=== PATIENT | male | born 1980 | race Caucasian/White ===

== ENCOUNTER 2024-09-26 14:50 | Inpatient (IN) | payer MEDICARE, MEDICAID ==
[2024-09-26] MEDS: Ondansetron 4 MG/2 ML SDV IVPUSH ONE (15:32)
[2024-09-26] MEDS: Sodium Chloride 0.9% 1,000 ML IV STA (15:32)
[2024-09-26] MEDS: Morphine 2 MG/ML SYRINGE IVPUSH ONE (15:33)
[2024-09-26] MEDS: Sodium Chloride 0.9% 10 ML Syringe FLUSH PRN (15:34)
[2024-09-26 15:39] LABS: BASOPHILS PERCENT AUTO 0.2 % (0.0-1.0); EOSINOPHILS ABSOLUTE AUTO 0.2 K/mm3 (0.0-0.4); EOSINOPHILS PERCENT AUTO 1.4 % (0.0-6.0); HEMATOCRIT 36.5 % (42.0-52.0); HEMOGLOBIN 13.1 gm/dl (14.0-18.0); IMMATURE GRAN ABSOLUTE AUTO 0.04 K/mm3 (0.00-0.05); IMMATURE GRAN PERCENT AUTO 0.3 % (0.0-0.4); LYMPHOCYTES ABSOLUTE AUTO 1.1 K/mm3 (1.0-4.8); LYMPHOCYTES PERCENT AUTO 8.7 % (24.0-44.0); MEAN CORPUSCULAR HEMOGLOBIN 33.6 pg (28.0-32.0); MEAN CORPUSCULAR HGB CONC 35.9 g/dl (32.0-36.0); MEAN CORPUSCULAR VOLUME 93.6 fl (83.0-99.0); MEAN PLATELET VOLUME 9.5 fl (9.4-12.4); MONOCYTES ABSOLUTE AUTO 0.9 K/mm3 (0.0-0.8); MONOCYTES PERCENT AUTO 6.7 % (0.0-8.0); NEUTROPHILS ABSOLUTE AUTO 10.8 K/mm3 (1.8-7.7); NEUTROPHILS PERCENT AUTO 82.7 % (41.0-71.0); PLATELET COUNT,PLT 431 K/mm3 (150-400); WHITE BLOOD CELL COUNT,WBC 13.01 K/mm3 (3.9-11.3)
[2024-09-26 16:04] LABS: A/G RATIO 0.7 (1-2); ALANINE AMINOTRANSFERASE,ALT 29 U/L (16-63); ALBUMIN 2.4 g/dl (3.4-5.0); ALKALINE PHOSPHATASE 146 U/L (46-116); ANION GAP 11.2 (5-15); ASPARTATE AMNIOTRANSFERASE,AST 19 U/L (15-37); BILIRUBIN TOTAL 0.3 mg/dL (0.2-1.0); BLOOD UREA NITROGEN,BUN 7 mg/dL (7-18); C-REACTIVE PROTEIN 1.64 mg/dL (<0.30); CALCIUM 8.3 mg/dL (8.5-10.1); CARBON DIOXIDE,CO2 27 mEq/L (21-32); CHLORIDE,CL 103 mEq/L (98-107); ESTIMATED GFR 96 mL/min (>60); GLUCOSE RANDOM 85 mg/dL (70-99); LIPASE 64 U/L (16-77); MAGNESIUM 1.5 mg/dL (1.8-2.4); PROTEIN TOTAL,TP 5.7 g/dl (6.4-8.2); SODIUM,NA 139 mEq/L (136-145)
[2024-09-26 16:09] LABS: POTASSIUM,K 2.2 mEq/L (3.5-5.1)
[2024-09-26] MEDS: droPERidol 2.5 MG/ML SDV IVPUSH ONE (16:15)
[2024-09-26] MEDS: Potassium Chloride 10 MEQ in Premix Bag 1 BAG IV SCH (16:18)
[2024-09-26] MEDS: Magnesium Sulf/Wat 4 GM/50 mL 4 GM in Premix Bag 1 BAG IV ONE (16:33)
[2024-09-26] MEDS: HYDROmorphone 0.5 MG/0.5 ML Syringe IVPUSH ONE (17:15)
[2024-09-26 17:24] LABS: APPEARANCE,URINE CLEAR (Clear); BILIRUBIN,URINE NEGATIVE (Negative); COLOR,URINE YELLOW (Yellow); GLUCOSE,URINE NEGATIVE (Negative); KETONES,URINE NEGATIVE (Negative); LEUKOCYTE ESTERASE,URINE NEGATIVE (Negative); NITRITE,URINE NEGATIVE (Negative); OCCULT BLOOD,URINE TRACE-INTACT (Negative); PH,URINE 6.5 (5.0-8.0); PROTEIN,URINE NEGATIVE (Negative); UROBILINOGEN,URINE 0.2 (0.2-1.0)
[2024-09-26 17:45] LABS: RBC,URINE 0-5 /hpf (0-5); WBC,URINE 0-5 /hpf (0-5)
[2024-09-26 17:46] LABS: BACTERIA,URINE FEW /hpf (FEW); EPITHELIAL CELLS,URINE 0-5 /hpf (0-5); MUCUS,URINE FEW /hpf (FEW)
[2024-09-26] MEDS ORDERED: Acetaminophen 325 MG Tab PO PRN ×2 (17:50→18:25)
[2024-09-26] MEDS ORDERED: Morphine 2 MG/ML SYRINGE SUBCUT PRN (18:24)
[2024-09-26] MEDS ORDERED: Naloxone 0.4 MG/ML SDV IVPUSH PRN (18:24)
[2024-09-26] MEDS: Potassium Chloride 20 MEQ Tab.ER PO ONE (18:30)
[2024-09-26] MEDS: oxyCODONE 5 MG Tab PO PRN (18:36)
[2024-09-26] MEDS: Sodium Chloride 0.9% 1,000 ML IV SCH (20:46)
[2024-09-26] MEDS: Morphine 2 MG/ML SYRINGE IVPUSH PRN (20:50)
[2024-09-26] MEDS: metroNIDAZOLE/Normal Saline 500 MG in Premix Bag 1 BAG IV SCH (23:06)
[2024-09-26] MEDS: methylPREDNISolone Sodium Succinate 40 MG/1 ML SDV IVPUSH SCH (23:07)
[2024-09-27 05:40] LABS: BASOPHILS PERCENT AUTO 0.1 % (0.0-1.0); EOSINOPHILS PERCENT AUTO 0.2 % (0.0-6.0); HEMATOCRIT 33.7 % (42.0-52.0); HEMOGLOBIN 11.7 gm/dl (14.0-18.0); IMMATURE GRAN ABSOLUTE AUTO 0.04 K/mm3 (0.00-0.05); IMMATURE GRAN PERCENT AUTO 0.5 % (0.0-0.4); LYMPHOCYTES ABSOLUTE AUTO 0.3 K/mm3 (1.0-4.8); LYMPHOCYTES PERCENT AUTO 3.9 % (24.0-44.0); MEAN CORPUSCULAR HEMOGLOBIN 33.1 pg (28.0-32.0); MEAN CORPUSCULAR HGB CONC 34.7 g/dl (32.0-36.0); MEAN CORPUSCULAR VOLUME 95.5 fl (83.0-99.0); MEAN PLATELET VOLUME 9.5 fl (9.4-12.4); MONOCYTES ABSOLUTE AUTO 0.1 K/mm3 (0.0-0.8); MONOCYTES PERCENT AUTO 0.9 % (0.0-8.0); NEUTROPHILS ABSOLUTE AUTO 7.7 K/mm3 (1.8-7.7); NEUTROPHILS PERCENT AUTO 94.4 % (41.0-71.0); PLATELET COUNT,PLT 378 K/mm3 (150-400); RED BLOOD CELL COUNT 3.53 M/mm3 (4.52-5.90); WHITE BLOOD CELL COUNT,WBC 8.12 K/mm3 (3.9-11.3)
[2024-09-27 06:05] LABS: A/G RATIO 0.7 (1-2); ANION GAP 11.8 (5-15); BILIRUBIN TOTAL 0.3 mg/dL (0.2-1.0); BUN/CREATININE RATIO 4.4 (14-18); CALCIUM 7.8 mg/dL (8.5-10.1); CREATININE 0.9 mg/dL (0.7-1.3); EST CRCL DRUG DOSING (CG) 77.13 mL/min; MAGNESIUM 2.2 mg/dL (1.8-2.4); POTASSIUM,K 3.8 mEq/L (3.5-5.1); PROTEIN TOTAL,TP 4.8 g/dl (6.4-8.2)
[2024-09-27 06:11] LABS: SLIDE REVIEW ABNORMAL SMEAR
[2024-09-27] MEDS: Sodium Chloride 0.9% 1,000 ML IV ONE (07:48)
[2024-09-27] MEDS: Enoxaparin 40 MG/0.4 ML Syringe SUBCUT SCH (08:11)
[2024-09-27] MEDS: Potassium Chloride 20 MEQ Tab.ER PO ONE (08:53)
== END 2024-09-27 13:00 | disposition home or self-care (01) | DRG 386 ==
LOC: JD.ED 14:50 → JD.MS 17:51
PROVIDERS: ADMIT Family Medicine; ATTEND Student in an Organized Health Care Education/Training Program
DX: K50.919 Crohn's disease, unspecified, with unspecified complications (principal); Z68.1 Body mass index [BMI] 19.9 or less, adult; J44.9 Chronic obstructive pulmonary disease, unspecified; K52.9 Noninfective gastroenteritis and colitis, unspecified; F17.210 Nicotine dependence, cigarettes, uncomplicated; F12.90 Cannabis use, unspecified, uncomplicated; E86.0 Dehydration; E87.5 Hyperkalemia; E83.42 Hypomagnesemia; R63.4 Abnormal weight loss; E87.6 Hypokalemia; I95.9 Hypotension, unspecified; Z79.899 Other long term (current) drug therapy
CPT/HCPCS: 36415; 80053; 81001; 83690; 83735; 85025; 86140; 87045; 87046 ×3; 87493 ×2; 87899 ×2; 93005; 96361; 96365; 96375; 99285; J1790; J2270; J2405; J3475; J3480 ×2; J7030; A9270-GY; J1836; J2919

== ENCOUNTER 2024-10-06 13:05 | Inpatient (IN) | payer MEDICAID, MEDICARE ==
[2024-10-06] MEDS ORDERED: Sodium Chloride 0.9% 10 ML Syringe FLUSH PRN (13:13)
[2024-10-06 13:42] LABS: BASOPHILS PERCENT AUTO 0.1 % (0.0-1.0); EOSINOPHILS ABSOLUTE AUTO 0.1 K/mm3 (0.0-0.4); EOSINOPHILS PERCENT AUTO 0.5 % (0.0-6.0); HEMATOCRIT 36.7 % (42.0-52.0); HEMOGLOBIN 13.4 gm/dl (14.0-18.0); IMMATURE GRAN ABSOLUTE AUTO 0.14 K/mm3 (0.00-0.05); IMMATURE GRAN PERCENT AUTO 0.7 % (0.0-0.4); LYMPHOCYTES ABSOLUTE AUTO 0.3 K/mm3 (1.0-4.8); LYMPHOCYTES PERCENT AUTO 1.5 % (24.0-44.0); MEAN CORPUSCULAR HEMOGLOBIN 33.9 pg (28.0-32.0); MEAN CORPUSCULAR HGB CONC 36.5 g/dl (32.0-36.0); MEAN CORPUSCULAR VOLUME 92.9 fl (83.0-99.0); MEAN PLATELET VOLUME 9.8 fl (9.4-12.4); MONOCYTES ABSOLUTE AUTO 0.5 K/mm3 (0.0-0.8); MONOCYTES PERCENT AUTO 2.4 % (0.0-8.0); NEUTROPHILS ABSOLUTE AUTO 19.4 K/mm3 (1.8-7.7); NEUTROPHILS PERCENT AUTO 94.8 % (41.0-71.0); PLATELET COUNT,PLT 385 K/mm3 (150-400); RED BLOOD CELL COUNT 3.95 M/mm3 (4.52-5.90); WHITE BLOOD CELL COUNT,WBC 20.52 K/mm3 (3.9-11.3)
[2024-10-06] MEDS: Potassium Chloride 20 MEQ Tab.ER PO ONE (13:54)
[2024-10-06] MEDS: Ondansetron 4 MG/2 ML SDV IVPUSH ONE (13:55)
[2024-10-06] MEDS: Sodium Chloride 0.9% 1,000 ML IV STA (13:55)
[2024-10-06] MEDS: Potassium Chloride 10 MEQ in Premix Bag 1 BAG IV SCH ×4 (13:55→20:50)
[2024-10-06] MEDS: Morphine 2 MG/ML SYRINGE IVPUSH ONE (13:55)
[2024-10-06 14:06] LABS: A/G RATIO 0.9 (1-2); ALBUMIN 2.6 g/dl (3.4-5.0); ANION GAP 11.7 (5-15); BILIRUBIN TOTAL 0.5 mg/dL (0.2-1.0); BUN/CREATININE RATIO 6.7 (14-18); CALCIUM 7.5 mg/dL (8.5-10.1); CREATININE 1.2 mg/dL (0.7-1.3); EST CRCL DRUG DOSING (CG) 59.5 mL/min; MAGNESIUM 1.6 mg/dL (1.8-2.4); PROTEIN TOTAL,TP 5.4 g/dl (6.4-8.2)
[2024-10-06 14:09] LABS: POTASSIUM,K 1.7 mEq/L (3.5-5.1)
[2024-10-06] MEDS: Magnesium Sulf/Wat 4 GM/50 mL 4 GM in Premix Bag 1 BAG IV ONE (14:21)
[2024-10-06] MEDS: methylPREDNISolone Sodium Succinate 40 MG/1 ML SDV IVPUSH ONE (14:35)
[2024-10-06] MEDS ORDERED: Acetaminophen 325 MG Tab PO PRN (15:37)
[2024-10-06] MEDS ORDERED: Ondansetron 4 MG/2 ML SDV IV PRN (15:37)
[2024-10-06 16:24] LABS: CREATINE KINASE,CK 52 U/L (39-308); TROPONIN I HIGH SENSITIVITY 8 pg/mL (<=76)
[2024-10-06] MEDS: Potassium Chloride 20 MEQ Tab.ER PO SCH (17:18)
[2024-10-06] MEDS ORDERED: Morphine 2 MG/ML SYRINGE SUBCUT PRN (17:22)
[2024-10-06] MEDS ORDERED: Naloxone 0.4 MG/ML SDV IVPUSH PRN (17:22)
[2024-10-06] MEDS: oxyCODONE 5 MG Tab PO PRN (17:24)
[2024-10-06] MEDS: Morphine 2 MG/ML SYRINGE IV PRN (18:24)
[2024-10-06] MEDS ORDERED: Sodium Chloride 0.9% 500 ML IV SCH (20:00)
[2024-10-06] MEDS: Morphine 2 MG/ML SYRINGE IVPUSH PRN (21:40)
[2024-10-06] MEDS: methylPREDNISolone Sodium Succinate 40 MG/1 ML SDV IVPUSH SCH (21:41)
[2024-10-06] MEDS: Sodium Chloride 0.9% 1,000 ML IV SCH (22:42)
[2024-10-07 04:54] LABS: BASOPHILS PERCENT AUTO 0.1 % (0.0-1.0); EOSINOPHILS PERCENT AUTO 0.1 % (0.0-6.0); HEMATOCRIT 31.9 % (42.0-52.0); HEMOGLOBIN 11.2 gm/dl (14.0-18.0); IMMATURE GRAN ABSOLUTE AUTO 0.13 K/mm3 (0.00-0.05); IMMATURE GRAN PERCENT AUTO 0.9 % (0.0-0.4); LYMPHOCYTES ABSOLUTE AUTO 0.4 K/mm3 (1.0-4.8); LYMPHOCYTES PERCENT AUTO 2.8 % (24.0-44.0); MEAN CORPUSCULAR HEMOGLOBIN 33.4 pg (28.0-32.0); MEAN CORPUSCULAR HGB CONC 35.1 g/dl (32.0-36.0); MEAN CORPUSCULAR VOLUME 95.2 fl (83.0-99.0); MEAN PLATELET VOLUME 9.9 fl (9.4-12.4); MONOCYTES ABSOLUTE AUTO 0.4 K/mm3 (0.0-0.8); MONOCYTES PERCENT AUTO 2.6 % (0.0-8.0); NEUTROPHILS ABSOLUTE AUTO 13.5 K/mm3 (1.8-7.7); NEUTROPHILS PERCENT AUTO 93.5 % (41.0-71.0); PLATELET COUNT,PLT 274 K/mm3 (150-400); RED BLOOD CELL COUNT 3.35 M/mm3 (4.52-5.90); WHITE BLOOD CELL COUNT,WBC 14.42 K/mm3 (3.9-11.3)
[2024-10-07 05:27] LABS: A/G RATIO 0.8 (1-2); ALBUMIN 1.9 g/dl (3.4-5.0); ANION GAP 10.8 (5-15); BILIRUBIN TOTAL 0.5 mg/dL (0.2-1.0); BUN/CREATININE RATIO 8.8 (14-18); CALCIUM 6.3 mg/dL (8.5-10.1); CREATININE 0.8 mg/dL (0.7-1.3); EST CRCL DRUG DOSING (CG) 96.09 mL/min; MAGNESIUM 2.2 mg/dL (1.8-2.4); POTASSIUM,K 3.8 mEq/L (3.5-5.1); PROTEIN TOTAL,TP 4.2 g/dl (6.4-8.2)
[2024-10-07 06:35] LABS: SLIDE REVIEW ABNORMAL SMEAR
[2024-10-07 08:12] LABS: PHOSPHORUS 3.1 mg/dL (2.6-4.7); VITAMIN D,25-HYDROXY < 5.0 ng/ml (30.0-100.0)
[2024-10-07] MEDS: Cholecalciferol (Vitamin D3) 5,000 UNIT Cap PO ONE (10:13)
[2024-10-09 19:42] LABS: IONIZED CA@PH7.4 1.06 mmol/L (1.09-1.30); IONIZED CALCIUM 1.02 mmol/L (1.09-1.30)
== END 2024-10-07 10:20 | disposition home or self-care (01) | DRG 641 ==
LOC: JD.ED 13:05 → JD.ICU 15:53
PROVIDERS: ADMIT Family Medicine; ATTEND Family Medicine
DX: E87.5 Hyperkalemia (principal); K50.90 Crohn's disease, unspecified, without complications; E83.42 Hypomagnesemia; E86.0 Dehydration; R63.8 Other symptoms and signs concerning food and fluid intake; D72.829 Elevated white blood cell count, unspecified; F10.90 Alcohol use, unspecified, uncomplicated; Y90.0 Blood alcohol level of less than 20 mg/100 ml; F12.90 Cannabis use, unspecified, uncomplicated; E87.6 Hypokalemia; Z88.8 Allergy status to other drugs, medicaments and biological substances; Z79.51 Long term (current) use of inhaled steroids; Z79.899 Other long term (current) drug therapy; Z98.890 Other specified postprocedural states
CPT/HCPCS: 36415; 80053; 80307; 82306; 82330; 82550; 83735; 84100; 84132; 84484; 85025; 85652; 86140; 93005; 96365; 96367; 96368; 96375; 99285; 99285-25; A9270-GY; J2270; J2405; J2919; J3475; J3480; J7030

== ENCOUNTER 2024-10-15 15:24 | Inpatient (IN) | payer MEDICARE, MEDICAID ==
[2024-10-15] MEDS: oxyCODONE 5 MG Tab PO ONE ×2 (16:39→23:51)
[2024-10-15 16:49] LABS: BASOPHILS PERCENT AUTO 0.1 % (0.0-1.0); EOSINOPHILS ABSOLUTE AUTO 0.1 K/mm3 (0.0-0.4); EOSINOPHILS PERCENT AUTO 0.4 % (0.0-6.0); HEMATOCRIT 37.4 % (42.0-52.0); HEMOGLOBIN 12.9 gm/dl (14.0-18.0); IMMATURE GRAN ABSOLUTE AUTO 0.07 K/mm3 (0.00-0.05); IMMATURE GRAN PERCENT AUTO 0.5 % (0.0-0.4); LYMPHOCYTES ABSOLUTE AUTO 1.3 K/mm3 (1.0-4.8); LYMPHOCYTES PERCENT AUTO 10.1 % (24.0-44.0); MEAN CORPUSCULAR HEMOGLOBIN 34.4 pg (28.0-32.0); MEAN CORPUSCULAR HGB CONC 34.5 g/dl (32.0-36.0); MEAN CORPUSCULAR VOLUME 99.7 fl (83.0-99.0); MEAN PLATELET VOLUME 9.6 fl (9.4-12.4); MONOCYTES PERCENT AUTO 7.5 % (0.0-8.0); NEUTROPHILS ABSOLUTE AUTO 10.4 K/mm3 (1.8-7.7); NEUTROPHILS PERCENT AUTO 81.4 % (41.0-71.0); PLATELET COUNT,PLT 223 K/mm3 (150-400); RED BLOOD CELL COUNT 3.75 M/mm3 (4.52-5.90); WHITE BLOOD CELL COUNT,WBC 12.73 K/mm3 (3.9-11.3)
[2024-10-15 17:09] LABS: ALBUMIN 2.5 g/dl (3.4-5.0); ANION GAP 7.7 (5-15); BILIRUBIN TOTAL 0.4 mg/dL (0.2-1.0); C-REACTIVE PROTEIN 0.89 mg/dL (<0.30); CALCIUM 6.6 mg/dL (8.5-10.1); EST CRCL DRUG DOSING (CG) 78.27 mL/min; ETHANOL BLOOD MEDICAL 0.04 gm% (0.00); MAGNESIUM 1.1 mg/dL (1.8-2.4); PROTEIN TOTAL,TP 5.1 g/dl (6.4-8.2)
[2024-10-15 17:21] LABS: POTASSIUM,K 1.7 mEq/L (3.5-5.1)
[2024-10-15] MEDS: Sodium Chloride 0.9% 1,000 ML IV SCH (17:28)
[2024-10-15] MEDS: Potassium Chloride 10 MEQ in Premix Bag 1 BAG IV SCH ×3 (17:29→21:45)
[2024-10-15] MEDS ORDERED: Magnesium Sulf/Wat 2 GM/50 mL 2 GM/50 ML BAG IV SCH (17:45)
[2024-10-15] MEDS: Magnesium Oxide 400 MG Tab PO ONE (18:08)
[2024-10-15] MEDS: Magnesium Sulf/Wat 2 GM/50 mL 2 GM/50 ML BAG IV ONE ×2 (18:08→19:57)
[2024-10-15] MEDS: Potassium Chloride 20 MEQ Tab.ER PO ONE ×2 (18:08→19:44)
[2024-10-15] MEDS: Spironolactone 25 MG Tab PO ONE (18:32)
[2024-10-15] MEDS: predniSONE 20 MG Tab PO ONE (18:40)
[2024-10-15] MEDS: Loperamide 2 MG Cap PO STA (18:53)
[2024-10-15 18:55] LABS: APPEARANCE,URINE CLEAR (Clear); BILIRUBIN,URINE NEGATIVE (Negative); COLOR,URINE YELLOW (Yellow); GLUCOSE,URINE NEGATIVE (Negative); KETONES,URINE NEGATIVE (Negative); LEUKOCYTE ESTERASE,URINE NEGATIVE (Negative); NITRITE,URINE NEGATIVE (Negative); OCCULT BLOOD,URINE NEGATIVE (Negative); PH,URINE 6.5 (5.0-8.0); PROTEIN,URINE NEGATIVE (Negative); UROBILINOGEN,URINE 0.2 (0.2-1.0)
[2024-10-15 19:40] LABS: BARBITURATE SCREEN,URINE NEGATIVE (CUTOFF=200); BENZODIAZEPINES SCREEN,URINE NEGATIVE (CUTOFF=150); BUPRENORPHINE SCREEN,URINE NEGATIVE (CUTOFF=10); METHADONE SCREEN, URINE NEGATIVE (CUT0FF=200); METHAMPHETAMINES SCREEN, URINE NEGATIVE (CUTOFF=500); OXYCODONE SCREEN,URINE NEGATIVE (CUT0FF=100); THC SCREEN,URINE 20 NG/ML PRESUMPTIVE POSITIVE (CUTOFF=50)
[2024-10-15 19:41] LABS: AMPHETAMINES SCREEN, URINE NEGATIVE (CUTOFF=500)
[2024-10-15] MEDS: oxyCODONE 5 MG Tab PO SCH (20:38)
[2024-10-16] MEDS: Loperamide 2 MG Cap PO PRN ×2 (00:02→17:19)
[2024-10-16 01:20] LABS: ANION GAP 3.9 (5-15); BUN/CREATININE RATIO 8.9 (14-18); CALCIUM 6.1 mg/dL (8.5-10.1); CREATININE 0.9 mg/dL (0.7-1.3); EST CRCL DRUG DOSING (CG) 86.97 mL/min
[2024-10-16] MEDS: Sodium Chloride 0.9% 100 ML IV SCH (01:30)
[2024-10-16] MEDS: Sodium Chloride 0.9% 100 ML ONE (01:30)
[2024-10-16 01:46] LABS: POTASSIUM,K 3.9 mEq/L (3.5-5.1)
[2024-10-16 05:46] LABS: BASOPHILS PERCENT AUTO 0.1 % (0.0-1.0); HEMATOCRIT 33.6 % (42.0-52.0); HEMOGLOBIN 11.5 gm/dl (14.0-18.0); IMMATURE GRAN PERCENT AUTO 0.7 % (0.0-0.4); LYMPHOCYTES ABSOLUTE AUTO 0.4 K/mm3 (1.0-4.8); LYMPHOCYTES PERCENT AUTO 2.7 % (24.0-44.0); MEAN CORPUSCULAR HEMOGLOBIN 34.3 pg (28.0-32.0); MEAN CORPUSCULAR HGB CONC 34.2 g/dl (32.0-36.0); MEAN CORPUSCULAR VOLUME 100.3 fl (83.0-99.0); MEAN PLATELET VOLUME 9.9 fl (9.4-12.4); MONOCYTES ABSOLUTE AUTO 0.3 K/mm3 (0.0-0.8); MONOCYTES PERCENT AUTO 2.1 % (0.0-8.0); NEUTROPHILS ABSOLUTE AUTO 13.2 K/mm3 (1.8-7.7); NEUTROPHILS PERCENT AUTO 94.4 % (41.0-71.0); PLATELET COUNT,PLT 173 K/mm3 (150-400); RED BLOOD CELL COUNT 3.35 M/mm3 (4.52-5.90); WHITE BLOOD CELL COUNT,WBC 14.01 K/mm3 (3.9-11.3)
[2024-10-16 06:15] LABS: SLIDE REVIEW ABNORMAL SMEAR
[2024-10-16 06:16] LABS: A/G RATIO 0.9 (1-2); ALBUMIN 2.2 g/dl (3.4-5.0); ANION GAP 3.5 (5-15); BILIRUBIN TOTAL 0.5 mg/dL (0.2-1.0); BUN/CREATININE RATIO 7.8 (14-18); CALCIUM 6.1 mg/dL (8.5-10.1); CREATININE 0.9 mg/dL (0.7-1.3); EST CRCL DRUG DOSING (CG) 88.13 mL/min; MAGNESIUM 2.4 mg/dL (1.8-2.4); PHOSPHORUS 3.9 mg/dL (2.6-4.7); POTASSIUM,K 3.5 mEq/L (3.5-5.1); PROTEIN TOTAL,TP 4.7 g/dl (6.4-8.2)
[2024-10-16] MEDS ORDERED: Albuterol 6.7 GM Inhaler INH PRN (08:53)
[2024-10-16] MEDS ORDERED: Naloxone 0.4 MG/ML SDV IVPUSH PRN (09:12)
[2024-10-16] MEDS ORDERED: Sennosides/Docusate Sodium 50-8.6 MG Tab PO PRN (09:12)
[2024-10-16] MEDS ORDERED: Acetaminophen 325 MG Tab PO PRN (09:12)
[2024-10-16] MEDS ORDERED: Ondansetron 4 MG/2 ML SDV IV PRN (09:12)
[2024-10-16 10:00] LABS: IRON,FE 55 ug/dL (65-175); PERCENT FE SATURATION 26 % (20-55); TRANSFERRIN 166 mg/dL (202-364)
[2024-10-16] MEDS: Enoxaparin 40 MG/0.4 ML Syringe SUBCUT SCH (10:28)
[2024-10-16] MEDS: Piperacillin/Tazobactam 4.5 GM in Sodium Chloride 0.9% 100 ML IV ONE (10:29)
[2024-10-16] MEDS: predniSONE 20 MG Tab PO SCH (10:29)
[2024-10-16] MEDS: Potassium Chloride 20 MEQ Tab.ER PO ONE (10:29)
[2024-10-16] MEDS: Calcium Gluconate 10% 1 GM/10 ML SDV IV ONE (10:29)
[2024-10-16 10:32] LABS: TOTAL IRON BINDING CAPACITY 208 ug/dL (100-400)
[2024-10-16 11:04] LABS: FOLIC ACID 5.2 ng/mL (8.6-58.9)
[2024-10-16] MEDS: Piperacillin/Tazobactam 4.5 GM in Sodium Chloride 0.9% 100 ML IV SCH (13:06)
[2024-10-16] MEDS: Morphine 2 MG/ML SYRINGE IVPUSH PRN (23:15)
[2024-10-17] MEDS: Loperamide 2 MG Cap PO ONE (01:24)
[2024-10-17] MEDS: Melatonin 3 MG Tab PO PRN (01:24)
[2024-10-17 05:28] LABS: BASOPHILS PERCENT AUTO 0.1 % (0.0-1.0); EOSINOPHILS PERCENT AUTO 0.1 % (0.0-6.0); HEMATOCRIT 31.6 % (42.0-52.0); HEMOGLOBIN 10.7 gm/dl (14.0-18.0); IMMATURE GRAN ABSOLUTE AUTO 0.09 K/mm3 (0.00-0.05); IMMATURE GRAN PERCENT AUTO 0.6 % (0.0-0.4); LYMPHOCYTES ABSOLUTE AUTO 0.7 K/mm3 (1.0-4.8); LYMPHOCYTES PERCENT AUTO 4.5 % (24.0-44.0); MEAN CORPUSCULAR HEMOGLOBIN 34.5 pg (28.0-32.0); MEAN CORPUSCULAR HGB CONC 33.9 g/dl (32.0-36.0); MEAN CORPUSCULAR VOLUME 101.9 fl (83.0-99.0); MEAN PLATELET VOLUME 10.1 fl (9.4-12.4); MONOCYTES ABSOLUTE AUTO 0.6 K/mm3 (0.0-0.8); MONOCYTES PERCENT AUTO 4.2 % (0.0-8.0); NEUTROPHILS ABSOLUTE AUTO 13.5 K/mm3 (1.8-7.7); NEUTROPHILS PERCENT AUTO 90.5 % (41.0-71.0); PLATELET COUNT,PLT 147 K/mm3 (150-400)
[2024-10-17 05:53] LABS: BILIRUBIN TOTAL 0.8 mg/dL (0.2-1.0); POTASSIUM,K 3.7 mEq/L (3.5-5.1)
[2024-10-17 06:02] LABS: SLIDE REVIEW ABNORMAL SMEAR
[2024-10-17 06:15] LABS: A/G RATIO 0.9 (1-2); ALBUMIN 2.1 g/dl (3.4-5.0); ANION GAP 7.7 (5-15); C-REACTIVE PROTEIN 0.7 mg/dL (<0.30); CALCIUM 7.3 mg/dL (8.5-10.1); CREATININE 0.9 mg/dL (0.7-1.3); EST CRCL DRUG DOSING (CG) 86.3 mL/min; PHOSPHORUS 2.4 mg/dL (2.6-4.7); PROTEIN TOTAL,TP 4.4 g/dl (6.4-8.2)
[2024-10-17] MEDS: oxyCODONE 5 MG Tab PO PRN (11:25)
[2024-10-17] MEDS ORDERED: Loperamide 2 MG Cap PO PRN (13:42)
[2024-10-17] MEDS: Cholecalciferol (Vitamin D3) 5,000 UNIT Cap PO SCH (14:38)
[2024-10-17] MEDS: Phosphorus #1 250 MG Tab PO ONE (14:38)
[2024-10-17] MEDS: Potassium Chloride 20 MEQ Tab.ER PO ONE (14:38)
[2024-10-17] MEDS: Cyanocobalamin (Vitamin B12) 1,000 MCG/ML SDV IM SCH (14:38)
[2024-10-17] MEDS: Folic Acid 1 MG Tab PO SCH (14:38)
[2024-10-17] MEDS: Calcium Gluconate 10% 1 GM/10 ML SDV IV ONE (14:38)
[2024-10-17] MEDS: Folic Acid 50 MG/10 ML MDV IV SCH (14:39)
[2024-10-17] MEDS: Morphine 2 MG/ML SYRINGE IVPUSH PRN (19:49)
[2024-10-18 05:26] LABS: BASOPHILS PERCENT AUTO 0.1 % (0.0-1.0); EOSINOPHILS PERCENT AUTO 0.2 % (0.0-6.0); HEMOGLOBIN 10.9 gm/dl (14.0-18.0); IMMATURE GRAN ABSOLUTE AUTO 0.06 K/mm3 (0.00-0.05); IMMATURE GRAN PERCENT AUTO 0.5 % (0.0-0.4); LYMPHOCYTES ABSOLUTE AUTO 0.8 K/mm3 (1.0-4.8); LYMPHOCYTES PERCENT AUTO 6.3 % (24.0-44.0); MEAN CORPUSCULAR HEMOGLOBIN 34.9 pg (28.0-32.0); MEAN CORPUSCULAR HGB CONC 34.1 g/dl (32.0-36.0); MEAN CORPUSCULAR VOLUME 102.6 fl (83.0-99.0); MEAN PLATELET VOLUME 10.1 fl (9.4-12.4); MONOCYTES ABSOLUTE AUTO 0.6 K/mm3 (0.0-0.8); NEUTROPHILS PERCENT AUTO 87.9 % (41.0-71.0); PLATELET COUNT,PLT 144 K/mm3 (150-400); RED BLOOD CELL COUNT 3.12 M/mm3 (4.52-5.90); WHITE BLOOD CELL COUNT,WBC 12.52 K/mm3 (3.9-11.3)
[2024-10-18 05:42] LABS: A/G RATIO 0.9 (1-2); ALBUMIN 2.1 g/dl (3.4-5.0); ANION GAP 7.1 (5-15); BILIRUBIN TOTAL 0.9 mg/dL (0.2-1.0); BUN/CREATININE RATIO 12.2 (14-18); C-REACTIVE PROTEIN 0.25 mg/dL (<0.30); CALCIUM 7.5 mg/dL (8.5-10.1); CREATININE 0.9 mg/dL (0.7-1.3); EST CRCL DRUG DOSING (CG) 85.89 mL/min; MAGNESIUM 1.6 mg/dL (1.8-2.4); PHOSPHORUS 2.4 mg/dL (2.6-4.7); POTASSIUM,K 4.1 mEq/L (3.5-5.1); PROTEIN TOTAL,TP 4.5 g/dl (6.4-8.2)
[2024-10-18] MEDS: Magnesium Sulf/Wat 2 GM/50 mL 2 GM in Premix Bag 1 BAG IV ONE (10:15)
[2024-10-18] MEDS ORDERED: Loperamide 2 MG Cap PO PRN (20:01)
[2024-10-18] MEDS: metroNIDAZOLE 500 MG Tab PO SCH (21:19)
[2024-10-19 04:50] LABS: BASOPHILS PERCENT AUTO 0.1 % (0.0-1.0); EOSINOPHILS PERCENT AUTO 0.1 % (0.0-6.0); HEMATOCRIT 33.4 % (42.0-52.0); HEMOGLOBIN 11.2 gm/dl (14.0-18.0); IMMATURE GRAN ABSOLUTE AUTO 0.08 K/mm3 (0.00-0.05); IMMATURE GRAN PERCENT AUTO 0.6 % (0.0-0.4); LYMPHOCYTES ABSOLUTE AUTO 0.8 K/mm3 (1.0-4.8); LYMPHOCYTES PERCENT AUTO 5.5 % (24.0-44.0); MEAN CORPUSCULAR HEMOGLOBIN 34.5 pg (28.0-32.0); MEAN CORPUSCULAR HGB CONC 33.5 g/dl (32.0-36.0); MEAN CORPUSCULAR VOLUME 102.8 fl (83.0-99.0); MEAN PLATELET VOLUME 10.1 fl (9.4-12.4); MONOCYTES PERCENT AUTO 7.4 % (0.0-8.0); NEUTROPHILS ABSOLUTE AUTO 11.9 K/mm3 (1.8-7.7); NEUTROPHILS PERCENT AUTO 86.3 % (41.0-71.0); PLATELET COUNT,PLT 136 K/mm3 (150-400); RED BLOOD CELL COUNT 3.25 M/mm3 (4.52-5.90); WHITE BLOOD CELL COUNT,WBC 13.73 K/mm3 (3.9-11.3)
[2024-10-19 05:19] LABS: A/G RATIO 0.8 (1-2); ALBUMIN 2.1 g/dl (3.4-5.0); ANION GAP 6.9 (5-15); BILIRUBIN TOTAL 0.6 mg/dL (0.2-1.0); BUN/CREATININE RATIO 13.8 (14-18); CALCIUM 7.5 mg/dL (8.5-10.1); CREATININE 0.8 mg/dL (0.7-1.3); EST CRCL DRUG DOSING (CG) 98.54 mL/min; MAGNESIUM 1.8 mg/dL (1.8-2.4); POTASSIUM,K 3.9 mEq/L (3.5-5.1); PROTEIN TOTAL,TP 4.6 g/dl (6.4-8.2)
[2024-10-19] MEDS: predniSONE 20 MG Tab PO SCH (08:58)
[2024-10-20 08:46] LABS: VITAMIN B1, WHOLE BLOOD 114 nmol/L (70-180)
== END 2024-10-19 13:43 | disposition home or self-care (01) | DRG 641 ==
LOC: JD.ED 15:24 → JD.MS 22:10
PROVIDERS: ADMIT Student in an Organized Health Care Education/Training Program; ATTEND Family Medicine
DX: E87.6 Hypokalemia (principal); K50.919 Crohn's disease, unspecified, with unspecified complications; K52.9 Noninfective gastroenteritis and colitis, unspecified; R79.89 Other specified abnormal findings of blood chemistry; M79.89 Other specified soft tissue disorders; F17.210 Nicotine dependence, cigarettes, uncomplicated; E83.42 Hypomagnesemia; F12.90 Cannabis use, unspecified, uncomplicated; J44.9 Chronic obstructive pulmonary disease, unspecified; E05.90 Thyrotoxicosis, unspecified without thyrotoxic crisis or storm; D53.9 Nutritional anemia, unspecified; E83.51 Hypocalcemia; F10.90 Alcohol use, unspecified, uncomplicated; E77.8 Other disorders of glycoprotein metabolism; E88.09 Other disorders of plasma-protein metabolism, not elsewhere classified; G89.29 Other chronic pain; E83.39 Other disorders of phosphorus metabolism; E53.8 Deficiency of other specified B group vitamins; E55.9 Vitamin D deficiency, unspecified; Z98.890 Other specified postprocedural states; Z88.8 Allergy status to other drugs, medicaments and biological substances; Z79.899 Other long term (current) drug therapy; Z79.52 Long term (current) use of systemic steroids; Z72.0 Tobacco use
CPT/HCPCS: 36415; 71045; 80053; 80306; 80307; 81003; 82947; 83735; 83880; 84484; 85025; 86140; 93005; A9270 ×7; J3475 ×2; J3480 ×5; J7030; J7512; 80048; 82306; 82607; 82746; 83540; 84100; 84425; 84466; 87493; 93010; 93306; 99285; J0612; J1650; J2270; J2543; J3420

== ENCOUNTER 2024-12-10 19:32 | Emergency (ER) | payer MEDICAID, MEDICARE, OTHER ==
[2024-12-10] MEDS ORDERED: Sodium Chloride 0.9% 10 ML Syringe FLUSH PRN (20:00)
[2024-12-10] MEDS: Sodium Chloride 0.9% 1,000 ML IV STA (20:09)
[2024-12-10 20:10] LABS: BASOPHILS PERCENT AUTO 0.1 % (0.0-1.0); HEMATOCRIT 38.9 % (42.0-52.0); HEMOGLOBIN 13.1 gm/dl (14.0-18.0); IMMATURE GRAN ABSOLUTE AUTO 0.04 K/mm3 (0.00-0.05); IMMATURE GRAN PERCENT AUTO 0.4 % (0.0-0.4); LYMPHOCYTES ABSOLUTE AUTO 0.6 K/mm3 (1.0-4.8); LYMPHOCYTES PERCENT AUTO 6.7 % (24.0-44.0); MEAN CORPUSCULAR HEMOGLOBIN 33.4 pg (28.0-32.0); MEAN CORPUSCULAR HGB CONC 33.7 g/dl (32.0-36.0); MEAN CORPUSCULAR VOLUME 99.2 fl (83.0-99.0); MEAN PLATELET VOLUME 9.4 fl (9.4-12.4); MONOCYTES ABSOLUTE AUTO 0.7 K/mm3 (0.0-0.8); MONOCYTES PERCENT AUTO 8.1 % (0.0-8.0); NEUTROPHILS ABSOLUTE AUTO 7.6 K/mm3 (1.8-7.7); NEUTROPHILS PERCENT AUTO 84.7 % (41.0-71.0); PLATELET COUNT,PLT 182 K/mm3 (150-400); RED BLOOD CELL COUNT 3.92 M/mm3 (4.52-5.90); WHITE BLOOD CELL COUNT,WBC 9.02 K/mm3 (3.9-11.3)
[2024-12-10 20:33] LABS: A/G RATIO 0.9 (1-2); ALBUMIN 2.7 g/dl (3.4-5.0); BILIRUBIN TOTAL 0.3 mg/dL (0.2-1.0); BUN/CREATININE RATIO 6.4 (14-18); CALCIUM 8.6 mg/dL (8.5-10.1); CREATININE 1.1 mg/dL (0.7-1.3); EST CRCL DRUG DOSING (CG) 66.87 mL/min; MAGNESIUM 1.5 mg/dL (1.8-2.4); PROTEIN TOTAL,TP 5.8 g/dl (6.4-8.2)
[2024-12-10] MEDS: Magnesium Sulfate 2 GM/50 mL 2 GM/50 ML BAG IV ONE (20:54)
== END 2024-12-10 22:48 | disposition home or self-care (01) ==
LOC: JD.ED 19:32
DX: K50.919 Crohn's disease, unspecified, with unspecified complications (principal); E83.42 Hypomagnesemia; F10.120 Alcohol abuse with intoxication, uncomplicated; J44.9 Chronic obstructive pulmonary disease, unspecified; Z88.8 Allergy status to other drugs, medicaments and biological substances; Z79.51 Long term (current) use of inhaled steroids; Z79.899 Other long term (current) drug therapy; Y90.9 Presence of alcohol in blood, level not specified
CPT/HCPCS: 36415; 80053; 80307; 83735; 85025; 96361; 96365; 96366; 99284; J3475; J7030

== ENCOUNTER 2024-12-21 10:48 | Emergency (ER) | payer MEDICARE, MEDICAID ==
[2024-12-21] MEDS: Potassium Chloride 20 MEQ Tab.ER PO ONE (11:09)
[2024-12-21] MEDS: Ondansetron 4 MG Tab.DIS PO ONE (11:09)
== END 2024-12-21 11:24 | disposition home or self-care (01) ==
LOC: JD.ED 10:48
DX: E87.6 Hypokalemia (principal); J44.9 Chronic obstructive pulmonary disease, unspecified; Z79.899 Other long term (current) drug therapy; Z88.8 Allergy status to other drugs, medicaments and biological substances
CPT/HCPCS: 99284; A9270; 99283